=== PATIENT | female | born 1970 | race Caucasian/White ===

== ENCOUNTER 2025-06-29 08:03 | Emergency (ER) | payer MEDICAID, SELFPAY ==
[2025-06-29 08:14] VITALS: BP 100/70; PULSE 72; RESP 20; TEMP 36.6; O2SAT 97
--- OUTSIDE RECORDS SUMMARY | 2025-06-29 08:15 | XMS_ITS | Encounter Summary ---
Author Organization [facility] Health Address [address] [place] [address] Care Team Providers Care Bed Operator Name Role Phone Jennie Ramos MD Primary Care Provider Shant Costa MD Unavailable None, Physician Primary Care Provider Unavailabl e Encounter Details Date Type Department Care Team (Late st Contact Info) Description 06/12/2021 [facility] Outpatient Visit [facility] [address] [place] [address] Sam Everett MD [address] [place] [address] Social History Tobacco Use Types Packs/Day Years Used Date Smoking Tobacco: Every Day Cigarettes 2 41.4 Started: 02/07/1984 Smokeless Tobacco: Never Alcohol Use Standard Drinks/Week Comments No 0 (1 standard drink = 0.6 oz pur e alcohol) Comments No Sex and Gender Information Value Date Recorded Sex Assigned at Not on file Legal Sex Female 4:22 AM [employer]PER[employer] Gender Identity Not on file Sexual Orientation Not on file documented as of this encounter Functional Status * Is person deaf or have serious hearing difficulty? Answer Date of Assessment Author No 02/15/2021 2:45 PM CDT Digna Sawyer RN * Is person blind or have serious difficulty seeing? Answer Date of Assessment Author No 02/15/2021 2:45 PM CDT Digna Sawyer RN * Does person have serious difficulty walking/climbing stairs? Answer Date of Assessment Author No 02/15/2021 2:45 PM CDT Digna Sawyer RN * Does person have difficulty dressing/bathing? Answer Date of Assessment Author No 02/15/2021 2:45 PM CDT Digna Sawyer RN * Does person have difficulty doing errands alone? Answer Date of Assessment Author No 02/15/2021 2:45 PM CDT Digna Sawyer RN documented as of this encounter Mental Status * Does person have difficulty concentrating/remembering/making decisions? Answer Entry Date Author No 02/15/2021 2:45 PM CDT Digna Sawyer RN documented in this encounter Plan of Treatment Upcoming Encounters Date Type Department Care Team (Late st Contact Info) Description 07/18/2025 11:00 AM CDT Appointment [facility] [address] [place] [id number] Serafin White MD [address] [id number] documented as of this encounter Visit Diagnoses Not on filedocumented in this encounter Care Teams Bed Operator Relationship Specialty Start Date End Date Jennie Ramos MD [address] [place] [address] PCP - General Family Medicine 01/28/21 04/14/25 None, Physician PCP - General 04/15/25 [place] [address] [facility] [address] [place] [address] Physical Medicine and Rehabilitation 06/27/23 documented as of this encounter
--- OUTSIDE RECORDS SUMMARY | 2025-06-29 08:16 | XMS_ITS | Continuity of Care Document ---
Author Organization [facility] Address [address] [place] [address] Phone Care Team Providers Care Feedmobile Driver Name Role Phone Christi Oliveira MD Unavailable Unavailable Allergies, Adverse Reactions, Alerts Substance Reaction Status Criticality No Known Allergies Active No Inform ation Medications Medication Instructions Dosage Effective Dates (start - stop) Status Comments Wellbutrin SR 150 mg tablet, 12 hr sustained-release take 1 tablet by oral route 2 times every day 150 MG - Active amlodipine 5 mg tablet take 1 tablet by oral route every day 5 MG - Active Vitamin D2 1,250 mcg (50,000 unit) capsule take 1 capsule by oral route every month [address] UNITS - Active hydrochlorothiazide 25 mg tablet take 1 tablet by oral route every day in the morning 25 MG - Active folic acid 1 mg tablet take 1 tablet by oral route every day 1 MG - Active atorvastatin 40 mg tablet take 1 tablet by oral route every day 40 MG - Active aspirin 81 mg tablet,delayed release take 1 tablet by oral route every day 81 MG - Active albuterol sulfate HFA 90 mcg/actuation aerosol inhaler inhale 2 puff by inhalation route 4 times every day as needed 180 MCG - Active Breztri Aerosphere 160 mcg-9mcg-4.8mcg/actuation HFA aerosol inhaler inhale 2 puff by inhalation route 2 times every day in the morning and evening 2.00 puff - Active Procedures Procedure Date OFFICE KYONS-ILY-APSPRZON OFFICE [id number] OFFICE [id number] Kept Appointment No Charge Encounter Dec ROUTINE VENIPUNCTURE OFFICE [id number] Brief Emotional/Behavioral A ssessment, With Scoring/Doct, Per Stndrd Instrument EKG (ELECTROCARDIOGRAM) OFFICE NMDMD-IHO-NEWY-MED Advance Directives Directive Yes / No Effective Date File Name No Information Encounters Encounter Description Practice Location Reason(s) For Visit Diagnoses Date Provider Providers Copied on Encounter [facility], [address], [place], [place], [id number] , tel: [phone] [facility] No Information 4 Tee Barraza. [address], [place], [id number] , . tel: [phone] [facility], [address], [place], [place], [address] , tel: [phone] [facility] [employer] [facility] [place] [facility] No Information 2 Tee Barraza. [address], [place], [id number] , . tel: [phone] OFFICE RHJUS-KZT-AB TAILED [facility], [address], [place], [place], [id number] , tel: [phone] [facility] [employer] [place] [facility] acute problem (chief complaint) Other emphysemaTobacco useCough 2 Hudson Wei . [address], [place], [id number] , . tel: [phone] Referring Provider: Ike Terry, [address] [place], [address] . tel:[phone] OFFICE LJHBJ-KFC-YC TAILED [facility], [address], [place], [place], [id number] , tel: [phone] [facility] wants to quit smoking and has cough (chief complaint) Other emphysemaPulmonary nodulesCigarette nicotine dependence without complication 2 Patnana Christi. [address] [place] [address], [id number] , . tel: [phone] Referring Provider: Christi Oliveira, [address] [place] [address], [address] . tel:[phone] OFFICE YUXJM-FZW-RU PANDED [facility], [address] [facility], [place], [place], [address] , tel: [phone] [facility] acute problem (chief complaint) Other emphysemaPulmonary nodulesBody mass index [BMI] 35.0-35.9, adult 2 Hudson Wei . [address] [place] [address], [id number] , . tel: [phone] Referring Provider: Christi Oliveira, [address] [place] [address], [address] . tel:[phone] [facility], [address] [facility], [place], [place], [id number] , tel: [phone] [facility] No Information 2 Tee Barraza. [address] [place] [address], [id number] , . tel: [phone] Referring Provider: Christi Oliveira, [address] [place] [address], [address] . tel:[phone] [facility], [address] [facility], [place], [place], [address] , tel: [phone] [facility] Hematuria, unspecified type 2 Tee Barraza. [address] [place] [address], [id number] , . tel: [phone] OFFICE [id number]-PKV-ZF MP [facility], [address] [facility], [place], [place], [id number] , tel: [phone] [facility] follow up (chief complaint) Morbid obesityBenign essential hypertensionPulmonary emphysema, unspecified emphysema typePAD (peripheral artery disease)Mixed hyperlipidemiaSinus pressurePulmonary nodulesCigarette nicotine dependence without complication 2 Tee Barraza. [address] [place] [address], [id number] , . [phone] Referring Provider: Christi Oliveira, [address] [place] [address], [id number] . tel:[phone] OFFICE DBPES-NAV-AB -MED [facility], [address], [place], [place], [id number] , [place] tel:[phone] [facility] Here to establish (chief complaint) Body mass index [BMI] 36.0-36.9, adultMixed hyperlipidemiaPAD (peripheral artery disease)Pulmonary emphysema, unspecified emphysema typeEncounter for screening mammogram for malignant neoplasm of breastShortness of breathBenign essential hypertensionMorbid obesity Tee Barraza. [address] [place] [address], [id number] , . tel:[phone] Referring Provider: Christi Oliveira, [address] [place] [address], [address] . tel:[phone] Family History Family Member Type Diagnosis Age At Onset No Information Immunizations Vaccine Date Status Comments Fluzone Quad, preservative f ree, split virus, 0.5mL dosage administered Source: Other Provider Payers Payer name Insurance type Covered constitution party ID Authoriza guilherme(s) TARSHA [id number] Social History Type Description Quantity Date Captured Comments Alcohol Use Details Unknown Caffeine Use Details Unknown Tobacco Use Status Smoking Status No Information Sex Female Sexual Orientation Straight or heterosexual Gender Identity Female Chief Complaint And Reason For Visit No Information Reason For Referral Reason For Referral No Information Plan Of Treatment Date Type Action Status Goal Tobacco cessation counseling completed Goal Dietary management education , guidance, and counseling completed Goal Tobacco cessation counseling completed Goal Dietary management education , guidance, and counseling completed Goal Dietary management education , guidance, and counseling completed Referral Referred To: [address] [place], [place], [id number] Ordered: CT of chest without contrast ordered Referral Referred To: [address] [place] [address], [phone] Ordered: CT chest w/ and w/o contrast ordered Referral Referred To: [address] [place] [address], [id number] [phone] Ordered: EKG (ELECTROCARDIOGRAM) ordered Referral Referred To: [address] [place] [address], [id number] [phone] Ordered: SCREENING MAMMOGRAM (CAD) Bilateral breast ordered History Of Present Illness Encounter Date Complaint History Of Prese nt Illness acute problem Chief complaint: cough. [facility]-19 outbreak.Cough. Started 2 weeks ago. Denies any fever or chills. no body aches or fatigue. no headache or dizziness. Denies any facial pain or sinus pressure. no runny nose or nasal congestion. no sore throat. no post nasal drip. Productive cough. Productive cough with yellow mucus. Wheezing at night. Denies any chest pain, SOB. no nausea, vomiting, or diarrhea. no abdominal pain. no rashes. Has not tried anything for symptoms. Symptoms improved then worsened. no sick contacts. no COVID vaccines. wants to quit smokin g and has cough she has been smoking for 20 years. she smokes about 3 packs a day. she wants to quit because she has cough all the time and cannot breathe well. she has tried patches and did not work. Craving are bad. she would like to lose weight . she cannot exercise due to her breathing. she has been trying to lose weight . she does not or decrease breads and sugars. she has been decreasing soda intake although she says she had 32 oz of soda.Emphysema: uses Breztri. she continues to have cough at night and wheezing . NO recent exacerbation. no recent ER visits. recent CT chest showed no change from the previous one. acute problem Chief complaint: cough with phlegm. Here today with complaints of cough with phlegm. Started about 1 month ago. Denies any fever or chills. no headache or dizziness. Denies any runny nose, sore throat, cough. no body aches or fatigue. no facial pain or sinus pressure. no ear pain. Denies any loss of taste or smell. Denies any post nasal drip. Productive cough with thick yellow mucus. Denies any chest pain. SOB that has not changed or worsened. Improves with inhaler. Notices some wheezing at night. Denies any nausea, vomiting, or diarrhea. no abdominal pain. no change in appetite. Has not tried anything for symptoms. no sick contacts. No COVID vaccines. follow up PAD/HTN/HLD: She saw cardiology in October, who recommended treatment for hypertension and ordered an echo. Echo showed EF of 70%, normal systolic and diastolic function with mild mitral regurgitation. Started on amlodipine, ASA. Continued on HCTZ and atorvastatin. No claudication, CP. Has stress test planned on 12/29. Emphysema: On twice daily inhaler (Breztri), doing well. Does not have albuterol. Continues to have frequent productive cough, though feels it has slightly improved. SOB limits activity. Lots of wheezing, occurs daily. Worst when she lays down at night, coughing helps. Smoking about 1.5 packs daily. Smokes mostly when bored. Tried patches and other OTC treatments, nothing worked so far. Not sure what to do. Has smoked for over 30 years, struggling to break the habit. Hypothyroid: Stopped levothyroxine (old PCP started for weight loss, not hypothyroid). No neck pain/tenderness, excessive fatigue, skin changes, headaches. Pain: Reports frequent pain in bilateral wrists and shoulders. 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 Takes Tylenol for severe pain, doesn't help much. No longer taking bupropion or muscle relaxant (methocarbamol). Not sure if put on Wellbutrin for smoking cessation or not. It did not help reduce cravings. Diet: Doesn't eat much, typically has small portions. Trying to lose weightExercise: Unable to exercise due to SOB.Sleep: Sleep typically broken frequently during the night. Usually gets about 6 hours of sleep, does not nap. Goes to bed 9:30-10, wakes up at 1-2 AM, then goes back to sleep for a few hours. Takes about 30 minutes to go back to sleep. Wakes up 6:30.Complains of sinus issues. Frequent headaches and pressure in her forehead. Not vaccinated against Covid Here to establish she is here to establish care . she has been on steroids for spots on her lungs. she has been on it for 2 weeks. she is not vaccinated. she had PFT. she is taking thyroid medication to lose weight.she has been taking methocarbamol for neck and shoulder pain . she says she was diagnosed with RA. 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 UTD Influenza vaccine.She had PFt which showed severely decreased DLCO. she is on Breztri inhaler. she gets out of breath when she walks. she has cough and bringing up phlegm. she was treated with steroids and antibiotics which helped. she says she is coughing but not as bad. she has been on inhaler for a month and she says she has not noticed any change in her breathing . she gets out of breath with exertion for last 2 months. she cannot walk uphill . Gets easily out of breath . no h/o CAD . she has h/o PAD. Functional Status Date Functional Assessmen t No Information Instructions Date Instruction Additional Infor walker Come in today at 2:3 0 for COVID testStart Doxycycline 1 tablet twice a day x 7 days. Take with food and big glass of water. Wear sunscreen and hat outside, stay in shadeGood handwashing Tylenol 1 gram three times a day as needed for pain or fever. Do not exceed more than 4 grams of Tylenol or acetaminophen in 1 dayMucinex over the counter as neededWarm salt water garglesWarm liquids foodsIncrease rest, fluidsHumidifier at bedtimeNasal saline rinse as neededcall office or go to ER for any worsening symptoms, chest pain, shortness of breath, fever please maintain social distancing and good handwashing. Wear a mask when in public places Related to Cough Come in today at 2:3 0 for COVID testStart Doxycycline 1 tablet twice a day x 7 days. Take with food and big glass of water. Wear sunscreen and hat outside, stay in shadeGood handwashing Tylenol 1 gram three times a day as needed for pain or fever. Do not exceed more than 4 grams of Tylenol or acetaminophen in 1 dayMucinex over the counter as neededWarm salt water garglesWarm liquids foodsIncrease rest, fluidsHumidifier at bedtimeNasal saline rinse as neededcall office or go to ER for any worsening symptoms, chest pain, shortness of breath, fever please maintain social distancing and good handwashing. Wear a mask when in public places Related to Other emphysema I recommend you stop smoking Rel ated to Tobacco use Repeat CT scan 04/04 showed no ch jairon Related to Pulmonary nodules continue to use Brez tri USe albuterol inhaler 2 puffs tid rec to stop smoking. Related to Other emphysema Discussed at length about different optionswill try wellbutrinslow wean which she can start once she has been on wellbutrin for 2 weekscall 1-800-QUIT NOW for additional help. Related to Cigarette nicotine dependence without complication healthy diet low in saturated fats and refined carbohydrates and daily exercise Related to Body mass index [BMI] 35.0-35.9, adult Get CT of chest with [facility]: Related to Pulmonary nodules Start Doxycycline 1 tablet twice a day x 7 days. Advised to take with food and big glass of waterStart Prednisone take 3 tablets daily x 2 days then 2 tablets daily x 4 days then 1 tablet daily x 4 days Tylenol 1 gram three times a day as needed for pain or fever. Do not exceed more than 4 grams of Tylenol or acetaminophen in 1 dayWarm salt water garglesWarm liquids foodsIncrease rest, fluidsHumidifier at bedtimeNasal saline rinse as neededMucinex every 12 hours as needed Continue inhalersCall office for any increase in shortness of breath, fatigue, feverEr for any chest pain, difficulty breathing, feeling faint, confusionGet CT [facility] Get a COVID vaccine as soon as possible. The Pfizer vaccine is fully approved by the FDA. Hundreds of millions of doses of COVID vaccines have been given with extremely rare side effects. Almost every patient who is hospitalized and/or dies of COVID is unvaccinated.I recommend you quit smoking Related to Other emphysema Dietary management e ducation, guidance, and counseling Related to Body mass index (BMI) 35.0-35.9, adult Disease process Recommended healthy habits including balanced diet and frequent exercise to encourage weight loss check A1c and TSHspend over 50 min with pt Related to Morbid obesity continue with medica tionslow salt dietencouraged exerciseObtain monitoring labs today Related to Benign essential hypertension continue with mediat ions Encouraged healthy balanced diet, exercise to promote weight loss follow through with stress test Related to PAD (peripheral artery disease) continue with statin low fat diet exercise as toleratedObtain monitoring labs today Related to Mixed hyperlipidemia Discussed at length about ways she can wean off cigWellbutrin did not help.she can try nicotrol inhalers .BUy one pack instead of two. Related to Cigarette nicotine dependence without complication NOted on CT scan of chest .rec a repeat in 6months which will be due in january. Related to Pulmonary nodules take over the counte r Claritin as needed Related to Sinus pressure Dietary management e ducation, guidance, and counseling Related to Body mass index (BMI) 34.0-34.9, adult BMI above 35. she castillo s HTN/HLD and Emphysemarec A1c and TSHAS per pt she had labs done a month agowill get records from previous PCPlow fat and car b dietrefrain from processed foodsAS per pt previous PCP was giving Levothyroxine for her to lose weightPt aware , we do not recommend that. Related to Morbid obesity Low salt diet. Maint ain ideal weight. Continue the same medications. Related to Benign essential hypertension continue Breztristop smoking. Re lated to Pulmonary emphysema, unspecified emphysema type Aggressive sec preve ntioncontinue statinsstop smokingASA a day Related to PAD (peripheral artery disease) low fat diet , stay active .continue statins Related to Mixed hyperlipidemia PFT showed low DLCOm ost likley due to emphysemashe is a heavy smokerrec CT chest nuclear stress. Related to Shortness of breath Dietary management e ducation, guidance, and counseling Related to Body mass index (BMI) 36.0-36.9, adult Giving encouragement to exercise Related to Body mass index (BMI) 36.0-36.9, adult Assessments Type Assessment Date No Information Patient Care Teams Name Effective Dates (start - stop) Status Members No Information
--- OUTSIDE RECORDS SUMMARY | 2025-06-29 08:16 | XMS_ITS | Clinical Summary ---
Author Organization [facility] Address [address] [place] [address] Care Team Providers Care Application Chemist Name Role Phone Shant Costa MD Unavailable [phone] None, Physician Primary Care Provider Unavailabl e Source Comments [facility],non-owned Affiliates and Associated Physician Practices is amultiple site organization consisting of ambulatory clinics and hospital sitesin [place], [place], [place] and [place]. This disclosure is being madepursuant to the Care Everywhere program and may not contain all information available regarding this patient. Last updated 18.[facility] Allergies No known active allergies Medications * Be aware that medications may not be up to date on this document. Alwaysverify current medications with the patient. aspirin (Aspirin) 81 MG chew tablet Take 1 (one) tablet by mouth once daily (chew and swallow) 90 tablet 3 04/14/2025 Active oxyCODONE, immediate release, (Roxicodone) 5 MG tabletIndication s:Aortic occlusion Take 1 (one) tablet by mouth every 4 hours as needed 4 tablet 04/14/2025 Active clopidogrel (plaVIX) 75 MG tablet Take 1 (one) tablet by mouth once daily 90 tablet 04/14/2025 Active Active Problems Problem Noted Date Diagnosed Date Abdominal pain, LUQ (left upper quadrant) 2020 Incisional hernia, without obstruction or gangre ne 02/13/2021 Chronic pain 08/22/2020 Overview (06/12/2021): Last Assessment & Plan: - May need pain management consultation - Home usage of narcotics and baclofen -[employer]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 SEE post op pain 08/26: Now off lidocaine drip, continue [employer] TECHNICIAN, transition to p.o. pain medication as able 08/27: Transitioned to PO pain medication. Complains mostly of chronic right knee pain secondary to uncontrolled RA per patient. Will refer her to a PCP for RA evaluation/management. Cigarette nicotine dependence without complicati on 05/10/2019 Pain in both lower extremities 02/06/2019 Aortic occlusion 02/06/2019 Encounters Date Type Department Care Team Description 05/23/2025 11:45 AM CDT Office Visit [facility] - Vascular Surgery [address], [place] [address] Serafin White MD Aortic occlusion (Primary Dx); Claudication; Encounter to establish care with new doctor 05/23/2025 10:35 AM CDT - 05/23/2025 11:59 PM T Hospital Encounter [facility] CAT SCAN [address] [place] [address] Serafin White MD Discharge Disposition: Home or Self Care 05/23/2025 Travel 04/22/2025 Telephone [facility] - Vascular Surgery [address] [place] [address] Serafin White MD Return To Work 04/15/2025 Travel 04/14/2025 Orders Only [facility] PHYS SURGERY [address] [place] [address] Tessa Huang MD Chronic distal aortic occlusion (HCC) 04/12/2025 9:15 AM CDT Anesthesia Event [facility] ANGELA OP [address] [place] [address] Rupesh Loja MD 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, 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, 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 04/12/2025 9:00 AM CDT - 04/12/2025 11:58 AM CDT Surgery [facility] AN[facility]ELA OP [address] [place] [address] Serafin White MD AORTIC STENT PLACEMENT, AORTOGRAM, IVUS 04/12/2025 7:36 AM CDT - 04/14/2025 12:16 PM CDT Hospital Encounter [facility] 4S ICU [address] [place] [address] Serafin White MD Surgery General Discharge Disposition: Home or Self Care 04/12/2025 Travel 04/03/2025 1:47 PM CDT - 04/03/2025 11:59 PM CDT Hospital Encounter [facility] LAB OP DRAW STATION [address] [place] [address] Serafin White MD Discharge Disposition: Home or Self Care 04/03/2025 1:45 PM CDT - 04/03/2025 1:46 PM CDT Hospital Encounter [facility] EKG/HOLTER [address] [place] [address] Serafin White MD Discharge Disposition: Home or Self Care 04/03/2025 1:22 PM CDT - 04/03/2025 1:44 PM CDT Hospital Encounter [facility] PAT [address] [place] [address] Serafin White MD Discharge Disposition: Home or Self Care 04/03/2025 Travel from Last 3 Months Immunizations Immunization Administration Dates Next Due INFLUENZA VACCINE, QUADR. (F LUZONE; FLULAVAL; FLUARIX; AFLURIA QUADRIVALENT; 6MO+), 0.5 ML (IIV4) 08/26/2021 Family History Medical History Relation Name Comments CVA Father Hypertension Father Arthritis - Rheumatoid Mother Cancer Paternal Grandfather Relation Name Status Comments Father Mother Paternal Grandfather Social History Tobacco Use Types Packs/Day Years Used Date Smoking Tobacco: Every Day Cigarettes 2 41.4 Started: 02/07/1984 Smokeless Tobacco: Never Tobacco Cessation:Ready to Q uit: No; Counseling Given: Yes Alcohol Use Standard Drinks/Week Comments No 0 (1 standard drink = 0.6 oz pur e alcohol) AUDIT-C Answer Date Recorded Q1: How often do you have a drink containing alcohol? Never 04/12/2025 Q2: How many drinks containi ng alcohol do you have on a typical day when you are drinking? Patient does not drink Q3: How often do you have si x or more drinks on one occasion? Never 04/12/2025 Overall Financial Resource Strain (CARDIA) Answe r Date Recorded How hard is it for you to pa y for the very basics like food, housing, medical care, and heating? Not hard at all 04/12/2025 PHQ-2 Answer Date Recorded Patient Health Questionnaire-2 Score 0 06/26/2025 [facility] - Occupational Stress Questionnaire Answer Date Recorded Do you feel stress - tense, restless, nervous, or anxious, or unable to sleep at night because your mind is troubled all the time - these days? Not at all 04/12/2025 Hunger Vital Sign Answer Date Recorded Within the past 12 months, y ou worried that your food would run out before you got the money to buy more. Never true 04/12/20 25 Within the past 12 months, t he food you bought just didn't last and you didn't have money to get more. Never true 04/12/2025 PRAPARE - Transportation Answer Date Re corded In the past 12 months, has l ack of transportation kept you from medical appointments or from getting medications? No 03/16 In the past 12 months, has l ack of transportation kept you from meetings, work, or from getting things needed for daily living? No 04/12/2025 Housing Stability Vital Sign Answer Danie e Recorded In the last 12 months, was t here a time when you were not able to pay the mortgage or rent on time? No 04/12/2025 In the past 12 months, how m any times have you moved where you were living? 0 04/12/2025 At any time in the past 12 m [facility], were you homeless or living in a halfway (including now)? 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 Gender Identity Not on file Sexual Orientation Not on file Last Filed Vital Signs Vital Sign Reading Time Taken Comments Blood Pressure 109/72 05/23/2025 12:11 PM CDT Pulse 65 05/23/2025 12:11 PM CDT Temperature 36.3 C (97.3 F) 05/23/2025 12:11 PM CDT Respiratory Rate 21 04/14/2025 8:00 AM CDT Oxygen Saturation 97% 05/23/2025 12:11 PM CDT Inhaled Oxygen Concentration 40% 02/12/2019 4 :27 PM CDT Weight 83.5 kg (184 lb) 05/23/2025 12:11 PM CDT Height 162.6 cm (5' 4) 05/23/2025 12:11 PM CDT Body Mass Index 31.58 05/23/2025 12:11 PM CDT Plan of Treatment Upcoming Encounters Date Type Department Care Team (Late st Contact Info) Description 07/18/2025 11:00 AM CDT Appointment [facility] VASCULAR [address] [place] [address] Serafin White MD [address] [address] Health Maintenance Due Date Last Done Comments COLOGUARD (AGES 45-75) - COLON CA SCREENING 1969 COLON MONITORING 1969 COLONOSCOPY - COLON CA SCREENING 1969 CT COLONOGRAPHY - COLON CA SCREENING 1969 Colorectal Cancer Screening 1969 FIT - COLON CA SCREENING 1969 FLEX SIG - COLON CA SCREENING 1969 LIPID TESTING 1969 HIV SCREENING 1984 HEPATITIS C SCREENING 11/23/1987 DTAP/TDAP/TD VACCINES (1 - Tdap) 1988 HEPATITIS B VACCINE (1 of 3 - 19+ 3-dose series) 1988 PNEUMOCOCCAL VACCINE 50+ (1 of 2 - PCV) 1988 PAP SMEAR 1990 MAMMOGRAM 08/01/2015 08/01/2013, 08/01/2013 LUNG CANCER SCREENING 2019 ZOSTER VACCINE (1 of 2) 2019 COVID-19 VACCINE ( season) 2024 DEPRESSION SCREENING 11/14/2024 INFLUENZA VACCINE (#1) 2025 08/26/2021 SCREENING FOR DIABETES 04/14/2028 , 04/12/2025, 04/03/2025, Additional history exists HIB VACCINE Aged Out No longer eligi ble based on patient's age to complete this topic HPV VACCINE Aged Out No longer eligi ble based on patient's age to complete this topic MENINGOCOCCAL (Group B) VACCINE SHARED DECISION-MAKING Aged Out No longer eligible based on patient's age to complete this topic MENINGOCOCCAL GROUPS A/C/Y/W VACCINE Aged Out No longer eligible based on patient's age to complete this topic Medical Devices Implanted Type Area Transfer Table Operator Device Identifier Shelf Expiration Date Model / Serial / Lot Graft Cv 6mm 30cm [facility] Polystr 2 r - [id number] Implanted:Qty: 1 on 02/12/2019 by Serafin White MD at [facility] N/A: Aorta [employer]quet 12/14/2022 [id number] / [id number] / [id number] [address] Sepra 10x6in Ovl Implanted:Qty: 1 on 02/13/2021 by Josey Schwartz MD at [facility] N/A: Abdomen [employer] [id number] 10/11/2021 [id number] / / [id number] Stent Eprsth 59mm 11mm 16sq Mm 8fr [place] - [id number] Implanted:Qty: 1 on 04/12/2025 by Serafin White MD at [facility] N/A: Aorta [employer] 12/25/2026 [id number] / [id number] / . Procedures Procedure Name Priority Date/Time Associated Diagnosis Comments CT ANGIO ABDOMEN PELVIS Routine 05/23/2025 10:54 AM CDT Chronic distal aortic occlusion (HCC) PHOSPHORUS BLOOD Routine 04/14/2025 3:47 AM CDT MAGNESIUM BLOOD Routine 04/14/2025 3:47 AM CDT CBC W/O DIFFERENTIAL Routine 04/14/2025 3:47 AM CDT BASIC METABOLIC PANEL (CALCIUM TOTAL) Routine 04/14/2025 3:47 AM CDT URINALYSIS REFLEX TO MICROSCOPIC NO CULTURE Routine 04/13/2025 9:51 AM CDT XR CHEST 1VW PORTABLE STAT 04/13/2025 9:47 AM CDT Aortic occlusion PHOSPHORUS BLOOD Routine 04/12/2025 11:5 3 PM CDT MAGNESIUM BLOOD Routine 04/12/2025 11:53 PM CDT CBC W/O DIFFERENTIAL Routine 04/12/2025 11:53 PM CDT BASIC METABOLIC PANEL (CALCIUM TOTAL) Routine 04/12/2025 11:53 PM CDT BLOOD GASES ART + COOX PANEL Routine 04/12/2025 2:55 PM CDT BLOOD GASES ART + COOX PANEL Routine 04/12/2025 1:08 PM CDT CBC W AUTO DIFFERENTIAL STAT 04/12/2025 1:08 PM CDT FL ANITRA W ANGIO TEAM Routine 04/12/2025 11:02 AM CDT Aortic occlusion PERIPHERAL IV NOTE Routine 04/12/2025 10 :14 AM CDT ENDOTRACHEAL TUBE NOTE Routine 04/12/2025 10:13 AM CDT ARTERIAL LINE NOTE Routine 04/12/2025 10 :12 AM CDT BLOOD GAS ART+LYTES+METAB+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 HE IS NOTIFYING THE REP HIMSELFC-ARM WITH ANGIO ORDERED, NEEDS IVUS PREPARE RBC LEUKOREDUCED UNIT Routine 04/12/2025 8:10 AM CDT TYPE + SCREEN PANEL STAT 04/12/2025 8 :10 AM CDT Pre-op exam TYPE + SCREEN PANEL Routine 04/03/2025 2 :23 PM CDT Pre-op testing CBC W/O DIFFERENTIAL Routine 04/03/2025 2:23 PM CDT Pre-op testing BASIC METABOLIC PANEL (CALCIUM TOTAL) Routine 04/03/2025 2:23 PM CDT Pre-op testing EKG 12-LEAD Routine 04/03/2025 1:06 PM CDT Pre-op testing from Last 3 Months Results * CT Angio Abdomen Pelvis (05/23/2025 10:54 AM CDT) Anatomical Region Laterality Modality Abdomen, Pelvis Computed Tomogra phy 05/23/2025 7:35 PM CDT Impressions 05/23/2025 7:42 PM CDT IMPRESSION: 1. Interval stenting of the infrarenal abdominal aorta, now widely patent. > Interpreting Provider: Ben Stafford MD on 05/23/2025 7:42 PM Narrative 05/23/2025 7:42 PM CDT PROCEDURE: CT ANGIO ABDOMEN PELVIS DATE/TIME OF EXAM: 05/23/2025 10:55 AM CLINICAL INFORMATION: None relevant/not provided if blank. Indication: I74.09: Chronic distal aortic occlusion (HCC) Additional History: COMPARISON: 03/25/2025, CT ANGIO ABDOMEN AORTA W RUNOFF TECHNIQUE: CT angiography of the abdomen and pelvis was performed without IV contrast followed by IV contrast. including 3D post processing CTA image reconstruction. CT dose reduction technique was used, including Automated Exposure Control. CONTRAST: IOPAMIDOL 76 % IV SOLN:100 mL FINDINGS: Vascular findings: There is no stenting of the infrarenal abdominal aorta which is now widely patent. The celiac artery is patent. The superior mesenteric artery is patent. The renal arteries are patent. Iliac arteries are patent with scattered calcifications. Nonvascular findings: There is atelectasis in the lung bases. There is no pleural effusion. The heart is normal in size. No pericardial effusion. The liver is normal. The gallbladder is normal. The spleen is normal. The pancreas is normal. The adrenal glands are normal. The kidneys enhance symmetrically with no hydronephrosis. The urinary bladder is normal. The uterus is normal. The small and large bowel are normal in caliber without bowel obstruction. There is no free intraperitoneal gas or free fluid in the pelvis. No abdominal lymphadenopathy. No suspicious osseous lytic or blastic lesion on bone windows. Procedure Note Ben Stafford MD - 05/23/2025 PROCEDURE: CT ANGIO ABDOMEN PELVIS DATE/TIME OF EXAM: 05/23/2025 10:55 AM CLINICAL INFORMATION: None relevant/not provided if blank. Indication: I74.09: Chronic distal aortic occlusion (HCC) Additional History: COMPARISON: 03/25/2025, CT ANGIO ABDOMEN AORTA W RUNOFF TECHNIQUE: CT angiography of the abdomen and pelvis was performed without IVcontrast followed by IV contrast. including 3D post processing CTA image reconstruction. CT dose reduction technique was used, including Automated ExposureControl. CONTRAST: IOPAMIDOL 76 % IV SOLN:100 mL FINDINGS: Vascular findings: There is no stenting of the infrarenal abdominal aorta which is nowwidely patent. The celiac artery is patent. The superior mesenteric artery is patent.The renal arteries are patent. Iliac arteries are patent with scattered calcifications. Nonvascular findings: There is atelectasis in the lung bases. There is no pleural effusion.The heart is normal in size. No pericardial effusion. The liver is normal. The gallbladder is normal. The spleen is normal.The pancreas is normal. The adrenal glands are normal. The kidneys enhance symmetrically with no hydronephrosis. The urinary bladder is normal. The uterus is normal. The small and large bowel are normal in caliber without bowelobstruction. There is no free intraperitoneal gas or free fluid in the pelvis. No abdominal lymphadenopathy. No suspicious osseous lytic or blastic lesion on bone windows. IMPRESSION: 1. Interval stenting of the infrarenal abdominal aorta, now widelypatent. > Interpreting Provider: Ben Stafford MD on 05/23/2025 7:42 PM us Serafin White MD CT ORDERABLES Final Result * (ABNORMAL) CBC W/O DIFFERENTIAL (04/14/2025 3:47 AM CDT) Only the most recent of3 resultswithin the time period is included. WBC 11.5(H) 4.0 - 10.7 x10E9/L 04/14/2025 3:57 AM [facility] RBC Count 3.86(L) 3.90 - 5.20 x10E12/L 04/14/2025 3:57 AM [facility] Hemoglobin 11.8(L) 11.9 - 15.8 g/dL 04/14/2025 3:57 AM [facility] Hematocrit 33.3(L) 34.8 - 46.1 % 04/14/2025 3:57 AM [facility] MCV 86.3 80.0 - 98.0 fL 04/14/2025 3:57 AM [facility] MCH 30.6 26.7 - 33.6 pg 04/14/2025 3:57 AM [facility] MCHC 35.4 31.7 - 36.3 g/dL 04/14/2025 3:57 AM [facility] RDW-CV 14.9(H) 11.3 - 14.8 % 04/14/2025 3:57 AM [facility] Platelet Count 192 150 - 420 x10E9/L 04/14/2025 3:57 AM [facility] MPV 9.5 7.8 - 11.4 fL 04/14/2025 3:57 AM [facility] Blood BLOOD SPECIMEN / Unknown Venipuncture / Unknown 04/14/2025 3:47 AM CDT 04/14/2025 3:53 AM CDT us Serafin White MD LAB - HEMATOLOGY ORDERABLES F inal Result [address] [address], [facility] [phone] * (ABNORMAL) BASIC METABOLIC PANEL (CALCIUM TOTAL) (04/14/2025 3:47 AM CDT) Only the most recent of3 resultswithin the time period is included. BUN 14 7 - 26 mg/dL 04/14/2025 4:19 AM [facility] Creatinine 0.87 0.56 - 0.96 mg/dL 04/14/2025 4:19 AM [facility] Sodium 138 136 - 145 mmol/L 04/14/2025 4:19 AM [facility] Potassium 4.1 3.5 - 4.5 mmol/L 04/14/2025 4:19 AM [facility] Chloride 106 98 - 107 mmol/L 04/14/2025 4:19 AM [facility] CO2 25 22 - 29 mmol/L 04/14/2025 4:19 AM [facility] Glucose 98 70 - 99 mg/dL 04/14/2025 4:19 AM [facility] Calcium 8.4 8.4 - 10.2 mg/dL 04/14/2025 4:19 AM [facility] Anion Gap 7 6 - 16 04/14/2025 4:19 AM [facility] BUN/Creatinine Ratio 16 7 - 23 04/14/2025 4:19 AM [facility] Osmolality Calculated 286 275 - 295 mOsm/kg 04/14/2025 4:19 AM CDT [facility] eGFR by CKD-EPI 79(L) >=90 mL/min/1.7 3 m2 04/14/2025 4:19 AM CDT [facility] Blood BLOOD SPECIMEN / Unknown Venipuncture / Unknown 04/14/2025 3:47 AM CDT 04/14/2025 3:53 AM CDT Serafin White MD LAB - CHEMISTRY ORDERABLES Fi nal Result [facility] [address] [place] [address], [place] [phone] * PHOSPHORUS BLOOD (04/14/2025 3:47 AM CDT) Only the most recent of2 resultswithin the time period is included. Phosphorus 3.8 2.9 - 5.1 mg/dL 04/14/2025 4:19 AM CDT [facility] Blood BLOOD SPECIMEN / Unknown Venipuncture / Unknown 04/14/2025 3:47 AM CDT 04/14/2025 3:53 AM CDT Serafin White MD LAB - CHEMISTRY ORDERABLES Fi nal Result Performing Organization Address City/[facility]/ZIP Co de Phone Number [facility] [address] [place] [address], [place] [phone] * MAGNESIUM BLOOD (04/14/2025 3:47 AM CDT) Only the most recent of2 resultswithin the time period is included. Magnesium 1.7 1.6 - 2.6 mg/dL 04/14/2025 4:19 AM CDT [facility] Blood BLOOD SPECIMEN / Unknown Venipuncture / Unknown 04/14/2025 3:47 AM CDT 04/14/2025 3:53 AM CDT Serafin White MD LAB - CHEMISTRY ORDERABLES Fi nal Result [facility] [address] [place] [address], [facility] [phone] * (ABNORMAL) URINALYSIS REFLEX TO MICROSCOPIC NO CULTURE (04/13/2025 9:51 AM CDT) Color UA Colorless(A ) Yellow, Straw 04/13/2025 10:03 AM [facility] Clarity UA Clear Clear 04/13/2025 10:03 AM [facility] Glucose UA Normal Normal 04/13/2025 10:03 AM T [facility] Bilirubin UA Negative Negative 04/13/2025 10:03 AM T [facility] Ketone UA Negative Negative 04/13/2025 10:03 AM [facility] Specific [place] UA 1.008 1.005 - 1.030 04/13/2025 10:03 AM [facility] Blood UA Negative Negative 04/13/2025 10:03 AM [facility] pH UA 6.5 5.0 - 8.0 pH 04/13/2025 10:03 AM [facility] Protein UA Negative Negative 04/13/2025 10:03 AM [facility] Urobilinogen UA Normal Normal mg/dL 04/13/2025 10:03 AM [facility] Nitrite UA Negative Negative 04/13/2025 10:03 AM [facility] Leukocyte Esterase UA Negative Negative 04/13/2025 10:03 AM [facility] Urine URINE SPECIMEN OBTAINED BY CLEAN CATCH PROCEDURE / Unknown Collection / Unknown 04/13/2025 9:51 AM CDT 04/13/2025 9:54 AM [facility] Narrative [facility] - 04/13/2025 10:03 AM CDT us Serafin White MD LAB - URINALYSIS ORDERABLES F inal Result [facility] [address] [place] [address], [facility] [phone] * XR Chest 1Vw Portable (04/13/2025 9:47 AM CDT) Anatomical Region Laterality Modality Chest Digital Radiogra phy 04/13/2025 11:0 3 AM CDT Narrative 04/13/2025 11:23 PM CDT PROCEDURE: XR CHEST 1VW PORTABLE, DATE/TIME OF EXAM: 04/13/2025 9:47 AM, LOCATION [facility] INDICATION: I70.0: Aortic occlusion ADDITIONAL CLINICAL INFORMATION: Ordering Provider Reason For Exam: Technologist Note: Additional: COMPARISON: None. TECHNIQUE: Frontal radiograph of the chest. FINDINGS/IMPRESSION: Cardiomediastinal silhouette appears normal. No pleural effusion or pneumothorax. Questionable mild vascular congestion. No acute osseous abnormality. Report dictated by Edinson Vera MD, (Sound Editor). Mina Cullen have personally reviewed and interpreted this examination/study. > Interpreting Provider: Mina Mcdaniel on 04/13/2025 11:23 PM Procedure Note Mina Mcdaniel MD - 04/13/2025 PROCEDURE: XR CHEST 1VW PORTABLE, DATE/TIME OF EXAM: 04/13/2025 9:47AM, LOCATION [facility] INDICATION: I70.0: Aortic occlusion ADDITIONAL CLINICAL INFORMATION: Ordering Provider Reason For Exam: Technologist Note: Additional: COMPARISON: None. TECHNIQUE: Frontal radiograph of the chest. FINDINGS/IMPRESSION: Cardiomediastinal silhouette appears normal. No pleural effusion or pneumothorax. Questionable mild vascular congestion. No acute osseous abnormality. Report dictated by Edinson Vera MD, (Sound Editor). Mina Cullen have personally reviewed and interpreted this examination/study. > Interpreting Provider: Mina Mcdaniel on 04/13/2025 11:23 PM us Serafin White MD DIAGNOSTIC IMAGING ORDERABLES Final Result * (ABNORMAL) BLOOD GASES ART + COOX PANEL (04/12/2025 2:55 PM CDT) Only the most recent of2 resultswithin the time period is included. pH Arterial 7.33(L) 7.35 - 7.45 pH 04/12/2025 3:06 PM CDT [facility] pO2 Arterial 81 80 - 100 mmHg 04/12/2025 3:06 PM [facility] pCO2 Arterial 47(H) 35 - 45 mmHg 3:06 PM [facility] HCO3 Arterial 24.8 20.0 - 30.0 mmol/L 04/12/2025 3:06 PM [facility] BE Arterial -1.6 -2.0 - 2.0 mmol/L 04/12/2025 3:06 PM [facility] Oxyhemoglobin Arterial 91.0 % 04/12/2025 3:06 PM [facility] Dexoyhemoglobin (HHB) % 2.0 % 04/12/2025 3:06 PM [facility] Methemoglobin <0.8 0.0 - 2.0 % 04/12/2025 3:06 PM [facility] Carboxyhemoglobin 6.4(H) 0.0 - 2.0 % 2024 3:06 PM [facility] O2 Content Arterial 19.1 Interpret within clinical context ml/dL 04/12/2025 3:06 PM [facility] Hemoglobin by COOX 14.9 12.0 - 15.6 g/dL 04/12/2025 3:06 PM [facility] O2 Saturation Arterial 98 90 - 100 % 04/12/2025 3:06 PM [facility] FI O2 Arterial 28.0 % 04/12/2025 3:06 PM [facility] Comment:2 L NC Blood, arterial ARTERIAL BLOOD SPECIMEN / Unknown Arterial Puncture / Unknown 04/12/2025 2:55 PM T 04/12/2025 3:[address] [facility] - 04/12/2025 3:06 PM [facility] Carboxyhemoglobin Normal Concentration: Non-smokers: 0-2%; Smokers: 0-9%; Toxic: >20% us Rupesh Loja MD LAB - BLOOD GASES ORDERABLES F inal Result [facility] [address] [place] [address], [facility] [phone] * (ABNORMAL) CBC W AUTO DIFFERENTIAL (04/12/2025 1:08 PM [facility]) WBC 21.6(H) 4.0 - 10.7 x10E9/L 04/12/2025 1:22 PM [facility] RBC Count 4.73 3.90 - 5.20 x10E12/L 04/12/2025 1:22 PM [facility] Hemoglobin 14.4 11.9 - 15.8 g/dL 04/12/2025 1:22 PM [facility] Hematocrit 40.2 34.8 - 46.1 % 04/12/2025 1:22 PM [facility] MCV 85.0 80.0 - 98.0 fL 04/12/2025 1: PM [facility] MCH 30.4 26.7 - 33.6 pg 04/12/2025 1:22 PM [facility] MCHC 35.8 31.7 - 36.3 g/dL 04/12/2025 1:22 PM [facility] [facility] RDW-CV 15.3(H) 11.3 - 14.8 % 04/12/2025 1:22 PM [facility] Platelet Count 381 150 - 420 x10E9/L 04/12/2025 1:22 PM [facility] MPV 9.5 7.8 - 11.4 fL 04/12/2025 1:22 PM [facility] Neutrophil % 86.7(H) 41.0 - 74.0 % 04/12/2025 1:22 PM [facility] Lymphocyte % 9.1(L) 17.0 - 47.0 % 04/12/2025 1:22 PM [facility] Monocyte % 1.1(L) 3.0 - 11.0 % 04/12/2025 1:22 PM [facility] Eosinophil % 0.2 0.0 - 7.0 % 04/12/2025 1:22 PM [facility] Basophil % 0.7 0.0 - 1.6 % 04/12/2025 1:22 PM [facility] Immature Granulocytes % 2.2(H) 0.0 - 1.0 % 04/12/2025 1:22 PM CDT [facility] Neutrophil Absolute 18.77(H) 1.60 - 7.50 x10E9/L 04/12/2025 1:22 PM CDT [facility] Lymphocyte Absolute 1.97 1.00 - 4.40 x10E9/L 04/12/2025 1:22 PM CDT [facility] Monocyte Absolute 0.23 0.15 - 1.00 x10E9/L 04/12/2025 1:22 PM CDT [facility] Eosinophil Absolute 0.04 0.00 - 0.60 x10E9/L 04/12/2025 1:22 PM CDT [facility] Basophil Absolute 0.15(H) 0.00 - 0.13 x10E9/L 04/12/2025 1:22 PM CDT [facility] Blood BLOOD SPECIMEN / Unknown Line Draw / Unknown 04/12/2025 1:08 PM CDT 04/12/2025 1:14 PM CDT us Rupesh Loja MD LAB - HEMATOLOGY ORDERABLES Fi nal Result [facility] [address] [place] [address], [facility] [phone] * [place] Anitra Parker Angio Team (04/12/2025 11:02 AM CDT) Narrative [facility] RADIOLOGY - 04/12/2025 11:03 AM CDT Fluoroscopy was used for this exam in the OR. Please see the Operative report. us Serafin White MD FLUOROSCOPY ORDERABLES Final Result [facility] RADIOLOGY * IV PLACEMENT PERFORMABLE (04/12/2025 10:14 AM CDT) Narrative Vidal Duong DO - 04/12/2025 10:14 AM CDT Vidal Duong DO 04/12/2025 10:14 AM Peripheral IV Line Placement: Patient Location: OR Insertion Time: 04/12/2025 9:30 AM Procedure: IV start ([id number]) Procedure Section: Skin Prep: alcohol. Orientation: right Location: hand Local Anesthetic Used? No Catheter Gauge: 16 Number of Attempts: 1. Procedure Tolerance: performed while patient under general anesthesia. Staff Section Anesthesia Provider: Rupesh Loja MD, Performed the procedure Rupesh Loja MD GENERAL ANESTHESIA ORDERABLES Final Result * ETT LINE PERFORMABLE (04/12/2025 10:13 AM CDT) Narrative Vidal Duong DO - 04/12/2025 10:13 AM CDT Vidal Duong DO 04/12/2025 10:14 AM Endotracheal Tube Placement: Patient Location: OR. Intubation Event Date/Time: 04/12/2025 9:28 AM Procedure: intubation ([id number]) Procedure Section: Sedation: under general anesthesia. Indications for Airway Management: anesthesia Procedure pretreatments used? No Induction: standard IV Patient Position: sniffing Mask Ventilation: easy. Blade Type: Video Blade Size: 3 Laryngoscopy View: grade 1 (full cords) Intubation Adjuncts: stylet Tube: endotracheal tube Placement: oral Tube type: cuff - inflated Tube Size (MM): 7 Depth of Insertion (CM): 22 Measured From: gums Cuff Inflated With: air Number of Attempts: 1. Placement Verified By: direct visualization, bilateral breath sounds, chest auscultation and CO2 monitor Tube secured with: adhesive tape. Dentition unchanged? Yes Difficult Airway? No. Procedure Start Time: 04/12/2025 9:28 AM. Staff Section Anesthesia Provider: Vidal Duong DO, Performed the procedure Provider #1: Rupesh Loja MD. Result [facility] Rupesh Loja MD GENERAL ANESTHESIA ORDERABLES Final Result * ARTERIAL LINE PERFORMABLE (04/12/2025 10:12 AM CDT) Narrative Vidal Duong DO - 04/12/2025 10:12 AM CDT Vidal Duong DO 04/12/2025 10:13 AM Arterial Line Placement Procedure Note Patient Location: OR. Insertion Time: 04/12/2025 9:32 AM Procedure: Arterial Line ([id number]) Procedure Section Indications: continuous blood pressure monitoring. Consent: informed consent was obtained for the procedure. Alternatives Discussed: alternative treatment Skin Prep: Chloraprep. Orientation: Left. Site: radial. Site Identification: ultrasound guided with sterile sleeve and gel. Sterile Technique: cap and mask. Gauge: 22. Catheter Length: 1 and 3/4 inch. Catheter Type: Arrow. Seldinger Technique Used? Yes Number of Attempts: 1. Procedure Tolerance: performed while patient under general anesthesia. Events: none. Patient Sedated? Yes Local Anesthetic Used? No Sedation Types: general anesthesia Staff Section Anesthesia Provider: Vidal Duong DO, Performed the procedure Provider #1: Rupesh Loja MD. Rupesh Loja MD GENERAL ANESTHESIA ORDERABLES Final Result * BLOOD GAS ART+LYTES+METAB+COOX POC NOTIF (04/12/2025 9:55 AM CDT) Comment Notification Label Only - See Separate Report 04/13/2025 10:00 AM CDT [facility] Other MISCELLANEOUS SAMPLES / Unknown 04/12/2025 9:55 AM CDT 04/13/2025 8:44 AM CDT Rupesh Loja MD LAB - BLOOD GASES ORDERABLES F inal Result [address] [address], [facility] [phone] * (ABNORMAL) BLOOD GAS+COOX+LYTES+METAB ARTERIAL POCT (04/12/2025 9:53 AM CDT) Only the most recent of2 resultswithin the time period is included. pH Arterial 7.32(L) 7.35 - 7.45 pH 04/12/2025 9:53 AM CDT [facility] pO2 Arterial 225(H) 80 - 100 mmHg 04/12/2025 9:53 AM T [facility] pCO2 Arterial 45 35 - 45 mmHg 9:53 AM [facility] HCO3 Arterial 23.2 20.0 - 30.0 mmol/L 04/12/2025 9:53 AM [facility] BE Arterial -3.0(L) -2.0 - 2.0 mmol/L 04/12/2025 9:53 AM T [facility] Oxyhemoglobin Arterial 90.8 % 04/12/2025 9:53 AM [facility] Dexoyhemoglobin (HHB) % <1.0 % 04/12/2025 9:53 AM [facility] Methemoglobin <0.8 0.0 - 2.0 % 04/12/2025 9:53 AM [facility] Carboxyhemoglobin 7.9(H) 0.0 - 2.0 % 2024 9:53 AM [facility] Comment:Carboxyhemoglobin No rmal Concentration: Non-smokers: 0-2%; Smokers: 0- 9%; Toxic: >20% O2 Content Arterial 16.4 Interpret within clinical context ml/dL 04/12/2025 9:53 AM [facility] Hemoglobin by COOX 12.4 12.0 - 15.6 g/dL 04/12/2025 9:53 AM [facility] O2 Saturation Arterial 99 90 - 100 % 04/12/2025 9:53 AM [facility] Sodium Whole Blood 136 135 - 145 mmol/L 04/12/2025 9:53 AM [facility] Potassium Whole Blood 4.2 3.5 - 5.5 mmol/L 04/12/2025 9:53 AM [facility] Chloride WB 110(H) 78 - 107 mmol/L 04/12/2025 9:53 AM [facility] Calcium Ionized 1.24 mmol/L 9:53 AM [facility] Ionized Calcium pH Adjusted 1.20 1.19 - 1.34 mmol/L 04/12/2025 9:53 AM [facility] Anion Gap (AG) Arterial 3(L) 6 - 16 mmol/L 04/12/2025 9:53 AM [facility] Glucose WB 88 70 - 99 mg/dL 04/12/2025 9:53 AM [facility] Lactic Acid Whole Blood 0.8 <=2.0 mmol/L 04/12/2025 9:53 AM [facility] Blood, arterial ARTERIAL BLOOD SPECIMEN / Unknown 04/12/2025 9:53 AM CDT 04/12/2025 9:55 AM CDT us Serafin White MD LAB - POINT OF CARE ORDERABLE S Final Result Performing Organization Address City/[facility]/ZIP Co de Phone Number [facility] [address] [place] [address], [facility] [phone] * PREPARE (CROSSMATCH) RBC UNIT(S), 2 Units (04/12/2025 8:10 AM CDT) Unit Description AS1 LR PRBC [facility] B[facility]OD [facility] LAB Unit ABO A [facility] Unit Rh POS [facility] Product Number R02 [facility] B LOOD [facility] LAB Unit Donor # [id number] [facility] Unit Status released [facility] BLOO D BANK LAB Product Code [id number] [facility] BLO OD BANK LAB Blood Type Barcode 6200 [facility] Expiration Date [id number] S BLOOD BANK LAB Unit Description AS1 LR PRBC [facility]OD [facility] Unit ABO A [facility]OD [facility] Unit Rh POS [facility]OD [facility] Product Number R02 [facility] B LOOD BANK LAB Unit Donor # [id number] [facility]OD [facility] Unit Status released [facility] BLOO D BANK LAB Product Code [id number] [facility] BLO OD BANK LAB Blood Type Barcode 6200 [facility] LAB Expiration Date [id number] S BLOOD BANK LAB Blood Bank BLOOD SPECIMEN / Unknown 04/12/2025 8:10 AM CDT 04/12/2025 8:25 AM CDT us Dipti Ford 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 LAB - BLOOD BANK ORDERAB LES Final Result [facility]LOOD [facility] LAB [address] [place] [address], [facility] [phone] * TYPE + SCREEN PANEL (04/12/2025 8:10 AM CDT) Only the most recent of2 resultswithin the time period is included. Antibody Screen NEG 9:08 AM CDT [facility] BLOOD [facility] LAB ABO Rh A POS 04/12/2025 9:08 AM CDT [facility] B[facility]OD [facility] LAB Blood Bank BLOOD SPECIMEN / Unknown Venipuncture / Unknown 04/12/2025 8:10 AM CDT 04/12/2025 8:25 AM CDT Dipti Ford APRN-STUDENT DEVELOPMENT DEAN LAB - BLOOD BANK ORDERAB LES Final Result Performing Organization Address City/[facility]/ZIP Co de Phone Number [facility] BLOOD [facility] LAB [address] [place] [address], [facility] [phone] * EKG 12-Lead (04/03/2025 1:06 PM CDT) Pathologist [facility] Ventricular Rate 61 BPM [facility] MUSE Atrial Rate 61 BPM [facility] P-R Interval 132 ms [facility] QRS Duration ms 78 ms [facility] Q-T Interval ms 420 ms [facility] MUSE QTC Calculation (Bezet) 422 ms [facility] MUSE Calculated P [place] 66 degrees [facility] MUSE Calculated R [place] 7 degrees [facility] MUSE Calculated T [place] 50 degrees SL MUSE Interpretation EKG NORMAL SINUS RHYTHM NORMAL ECG WHEN COMPARED WITH ECG OF 06-FEB-2019 00:10, NO SIGNIFICANT CHANGE WAS FOUND Confirmed by LEONARD TRACY MD ([id number]) on 04/07/2025 11:04:37 PM [facility] MUSE 04/03/2025 1:06 PM CDT 04/07/2025 11:04 PM CDT Dipti Ford APRN-STUDENT DEVELOPMENT DEAN ECG ORDERABLES Edited R esult - Final [facility] MUSE from Last 3 Months Insurance [place] [employer] Advance Directives * Full Code (Latest Code Status on File) Date Activated Date Inactivated Comments 04/12/2025 11:14 AM 04/14/2025 1:16 PM * Full Code Date Activated Date Inactivated Comments 02/13/2021 6:50 PM 02/15/2021 2:26 PM * Full Code Date Activated Date Inactivated Comments 02/12/2019 6:38 PM 02/17/2019 5:17 PM * Full Code Date Activated Date Inactivated Comments 02/12/2019 11:16 AM 02/12/2019 6:30 PM * Full Code Date Activated Date Inactivated Comments 02/06/2019 5:08 AM 02/07/2019 6:53 PM Care Teams Application Chemist Relationship Specialty Start Date End Date None, Physician PCP - General 04/15/25 [place] [id number] [address] Physical Medicine and Rehabilitation 06/27/23
--- OUTSIDE RECORDS SUMMARY | 2025-06-29 08:16 | XMS_ITS | Clinical Summary ---
Author Organization [facility] Address [address] [place] [address] Phone Care Team Providers Care Clinical Aide Name Role Phone Christi Oliveira MD Primary Care Provider [phone] Allergies No known active allergies Medications cyclobenzaprine (FLEXERIL) 10 mg tabletIndication s:Myalgia of auxiliary muscles, head and neck Take 1 Tablet (10 mg) by mouth 2 times daily. Will make you sleepy. 12 Tablet 06/22/2025 Active Hospital, Clinic, or Other Facility Administered Medication Ordered Dose Route Frequency Start Date End Date Status ketorolac (TORADOL) injection 30 mgIndications:Myalgia of auxiliary muscles, head and neck,Neck pain on right side 30 mg IM ONE TIME ONLY 06/22/2025 06/22/2025 Ended Active Problems No known active problems Encounters Date Type Department Care Team Description 06/25/2025 External Device Data [facility] ABSTRACTION Provider, Abstract 06/25/2025 External Device Data [facility] Provider, Abstract 06/25/2025 External Device Data [facility]STRACTION Provider, Abstract 06/22/2025 2:35 PM CDT Office Visit [facility] [place] [address] [employer] [facility] [place] [address] Michelle Grier FNP Myalgia of auxiliary muscles, head and neck (Primary Dx); Neck pain on right side from Last 3 Months Social History Tobacco Use Types Packs/Day Years Used Date Smoking Tobacco: Every Day Cigarettes Smokeless Tobacco: Never Tobacco Cessation:Ready to Q uit: Not Asked; Counseling Given: Not Answered Comments Unknown Sex and Gender Information Value Date Recorded Sex Assigned at Not on file Legal Sex 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 Gender Identity Not on file Sexual Orientation Not on file Last Filed Vital Signs Vital Sign Reading Time Taken Comments Blood Pressure 102/69 06/22/2025 3:30 PM CDT Pulse 67 06/22/2025 2:44 PM CDT Temperature 36.9 C (98.4 F) 06/22/2025 2:44 PM CDT Respiratory Rate 16 06/22/2025 2:44 PM CDT Oxygen Saturation 96% 06/22/2025 2:44 PM CDT Inhaled Oxygen Concentration - - Weight 83 kg (183 lb) 06/22/2025 2:44 PM CDT Height 162.6 cm (5' 4) 06/22/2025 2:44 PM CDT Body Mass Index 31.41 06/22/2025 2:44 PM CDT Plan of Treatment Health Maintenance Due Date Last Done Comments Pre-Diabetes and Diabetes Screening 1969 DTAP/TDAP/TD VACCINES (1 - Tdap) 1988 HEPATITIS B VACCINES (1 of 3 - 19+ 3-dose series) 1988 HPV/Cotest (21-29) 1990 CERVICAL CANCER SCREENING 1999 HPV/Cotest (30-65) 1999 PAP SMEAR 1999 BREAST CANCER SCREENING 08/01/2014 08/01/2013, 08/01 COLORECTAL SCREENING 2014 Colorectal Cancer Screening 2014 FIT-DNA Q 3 years 2014 FIT/FOBT Q 1 year 2014 Flex Sig/CT Colonography Q 5 years 2014 ZOSTER VACCINE (1 of 2) 2019 INFLUENZA VACCINE (#1) 2025 08/26/2021, 2020 Insurance [facility] HE[facility]AN MEDICAID Care Teams Clinical Aide Relationship Specialty Start Date End Date Christi Oliveira MD [address] [place] [address] PCP - General Family Practice 10/06/21
--- OUTSIDE RECORDS SUMMARY | 2025-06-29 08:16 | XMS_ITS | Clinical Summary ---
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 No end-organ damage based on current labs. Started losartan 25mg PO once daily. BUN/Cr WNL and stable. Will refer to a PCP for follow-up/management. Hypokalemia 08/27/2020 Overview (08/27/2020): -08/27: K+ 3.2 on 09/12, repleted. Assessment & Plan (08/27/2020 10:08 AM CDT): - 08/27: K+ 3.2 on 08/26, repleted. Continue monitoring. PAD (peripheral artery disease) 08/22/2020 Assessment & Plan (08/26/2020 8:17 AM CDT): - History of vascular operation in 2019 at [facility] - Aorto-iliac bypass vs. Aorto-iliac endarterectomy - Follow-up with Dr. Tello at [facility], patient last seen 07/31/2020 and instructed to follow up in 1 year with ABIs [phone] - not currently on anticoagulation Chronic pain 08/22/2020 Assessment & Plan (08/27/2020 9:48 AM CDT): - May need pain management consultation - Home usage of narcotics and baclofen -SCREEN TENDER, 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 SEE post op pain 08/26: Now off lidocaine drip, continue SCREEN TENDER, transition to p.o. pain medication as able 08/27: Transitioned to PO pain medication. Complains mostly of chronic right knee pain secondary to uncontrolled RA per patient. Will refer her to a PCP for RA evaluation/management. Acute post-operative pain 08/22/2020 Assessment & Plan (08/27/2020 11:12 AM CDT): PAIN consulted Baclofen 5 TID PRN Oxycodone 5 q4H PRN Tylenol 1g q8H BAILEE dPCA Lidocaine gtt a. Opioids: IV: SCREEN TENDER: Hydromorphone 0.2mg q 10min b. Adjuvants: Topical: Adding 5% Lidocaine Patch IV: Continue lidocaine gtt. Please obtain lidocaine level q24H. Discontinue if >5. 08/25 Dilaudid SCREEN TENDER, while NPO then will transition to PO 08/27 transitioned to all oral pain medications. Regimen appropriate for pain control. Will discharge with oxycodone, baclofen, Tylenol. Incarcerated ventral hernia 08/20/2020 Overview (08/21/2020): Added automatically from request for surgery [id number] Assessment & Plan (08/27/2020 2:37 PM CDT): #SBO - OR overnight 08/20 for ex-lap + lysis of adhesions and primary ventral hernia repair. - NGT to LIWS; confirm intra-op - NPO, mIVF - Dilaudid SCREEN TENDER 08/23 NG to LIS, no bowel function. PRASHANTH drain, midline amy. ARBF 08/24: NG to LIWS. ARBF 08/25 low NGT output, no flatus, will provide a suppository 08/26: Bowel movement overnight, NG put out 850 dark output, passing gas, plan for 4 hours clamp trial today. 08/27: Flatus, BMs, NG output 10mL, no nausea. Advanced diet and will monitor her tolerance. Tolerated breakfast well this morning. Consider DC today if tolerates PO. - PM UPDATE: Patient now tolerating regular diet, having BM's, pain well controlled. Ambulating with wheeled walker and voiding without issue. Plan to discharge home with supervision from family. Follow up in [facility] in 2-3 weeks Cigarette nicotine dependence without complicati on 05/10/2019 Aortic occlusion 02/06/2019 Pain in both lower extremities 02/06/2019 Surgical History Surgery Date Site/Laterality Comments VASCULAR SURGERY 02/12/2019 - 03/13/2019 aorta surgery Medical History Medical History Date Comments Back pain Social History Tobacco Use Types Packs/Day Years Used Date Smoking Tobacco: Every Day Cigarettes 1 35 Smokeless Tobacco: Never Tobacco Cessation:Ready to Q uit: Not Asked; Counseling Given: Not Answered Alcohol Use Standard Drinks/Week Comments Never 0 (1 standard drink = 0.6 oz pur e alcohol) AUDIT-C Answer Date Recorded Q1: How often do you have a drink containing alc ohol? 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 Gender Identity Not on file Sexual Orientation Not on file Obstetrics History Last Filed Vital Signs Vital Sign Reading Time Taken Comments Blood Pressure 153/83 11/18/2020 9:00 AM BIN CLEANER Pulse 91 11/18/2020 9:00 AM BIN CLEANER Temperature 36.7 C (98 F) 11/18/2020 9:00 AM BIN CLEANER Respiratory Rate 18 08/27/2020 7:54 AM CDT Oxygen Saturation 96% 11/18/2020 9:00 AM BIN CLEANER Inhaled Oxygen Concentration - - Weight 90.7 kg (200 lb) 04/14/2023 1:44 PM CDT Height 162.6 cm (5' 4) 04/14/2023 1:44 PM CDT Body Mass Index 34.33 04/14/2023 1:44 PM CDT Plan of Treatment Health Maintenance Due Date Last Done Comments Cervical Cancer Screening 1969 Colon Cancer Screening-Colonoscopy 1969 Depression Screening 1969 Hepatitis C Screening 1969 DTaP/Tdap/Td Vaccine (1 - Tdap) 1980 Hepatitis B Screening 1987 Regular Well Visit/Exam 18-64 1987 Pneumococcal vaccine <65 (1 of 2 - PCV) 1988 Breast Cancer Screening-Mammogram 08/01/2014 013 Zoster Vaccine (1 of 2) 2019 Influenza Vaccine (#1) 2025 07/30/2021 Procedures Procedure Name Priority Date/Time Associated Diagnosis Comments SCREENING MAMMOGRAM W TREVOR Routine 08/01/2013 12:43 PM CDT from Last 3 Months or Most Recently Relevant to Health Maintenance Results * Screening Mammogram W Trevor (08/01/2013 12:43 PM CDT) Anatomical Region Laterality Modality Breast N/A Mammography 08/01/2013 12:4 3 PM CDT Narrative 08/03/2013 1:47 PM CDT MENDY SOUTH M.D. CASSIE ARANA M.D. FINAL REPORT The radiology attending physician has personally reviewed this study, and has reviewed and/or edited this written report and agrees with it. [facility]# Date Time Exam [id number] Aug 01, 2013 11:16:00 [facility] [id number] Diag Mammogram Bilateral Technologist(s): Anne Lam; ; [id number] Aug 01, 2013 11:35:00 [facility] [id number] Sono Breast (Unilateral) R [id number] Aug 01, 2013 12:43:00 [facility] [id number] Unilateral Tomosynthesis R Technologist(s): Josey Osborn; ; EXAMINATION: BILATERAL FULL FIELD DIGITAL DIAGNOSTIC MAMMOGRAM, DIGITAL BREAST TOMOSYNTHESIS, AND RIGHT BREAST SONOGRAM HISTORY: 42-year-old woman with palpable lump in the outer slightly lower right breast that she felt for 2 weeks. MAMMOGRAM TECHNIQUE: Additional views of both breasts were obtained utilizing full field digital mammography. Digital breast tomosynthesis was also performed and reviewed as a part of this examination. COMPARISON: None available. BREAST PARENCHYMAL COMPOSITION: Heterogeneously dense, which could obscure detection of small masses. MAMMOGRAM FINDINGS: Right breast: There are no suspicious masses, architectural distortions or suspicious calcifications. Coarse calcifications are noted in the upper outer right breast. Left breast: Scattered amorphous calcifications are noted in the upper outer left breast, which layer and become more distinct on the lateral view, consistent with milk of calcium, a benign finding. No suspicious masses, no suspicious calcifications or architectural distortions are noted in the left breast. SONOGRAM FINDINGS: Directed sonogram of the left lower outer breast was performed in the area of the palpable abnormality as well as in the surrounding regions. There are several areas of diffuse posterior acoustic shadowing, likely due to fibrosis, however no defined focal abnormal solid or cystic lesion is seen. Directed physical examination of the area of concern demonstrates no definite suspicious palpable abnormality at this time. IMPRESSION: 1) Dense fibrotic breast tissue, however no suspicious abnormality is confirmed in the area of reported palpable concern in the lower outer right breast. Clinical followup is recommended. If the palpable abnormality persists, surgical consultation is recommended. The above findings and recommendations were discussed with the patient at the end of the examination. 2) Benign bilateral breast calcifications. 3) Annual screening mammography is recommended. OVERALL FINAL ASSESSMENT: BI-RADS Category 2: Benign finding. ADDENDUM Addendum issued 08/02/[address] South and Luann The mammographic technique section should read: MAMMOGRAM TECHNIQUE: Additional views of both breasts were obtained utilizing full field digital mammography. Digital breast tomosynthesis was also performed and reviewed as a part of this examination.Computer Aided Detection was performed with [email or web address] version 9.3. OVERALL FINAL ASSESSMENT: BI-RADS Category 2: Benign finding. Requested By: Giovanni French [facility] Dictated By: CASSIE ARANA M.D. on Aug 01 2013 1:13P This document has been electronically signed by: MENDY SOUTH M.D. on Aug 01 2013 1:26P Addendum Dictated by: CASSIE ARANA M.D. on Aug 02 2013 2:35P This Addendum has been electronically signed by: MENDY SOUTH M.D. on Aug 03 2013 1:47P Procedure Note Provider, MD Joan - 03/13/2017 MENDY MONSEES, M.D. EVGUENIA KARIMOVA, M.D. FINAL REPORT The radiology attending physician has personally reviewed this study, and has reviewed and/or edited this written report and agrees with it. [facility]# Date Time Exam [id number] Aug 01, 2013 11:16:00 [facility] [id number] Diag Mammogram Bilateral Technologist(s): Anne Lam; ; [id number] Aug 01, 2013 11:35:00 [facility] [id number] Sono Breast (Unilateral) R [id number] Aug 01, 2013 12:43:00 [facility] [id number] Unilateral Tomosynthesis R Technologist(s): Josey Osborn; ; EXAMINATION: BILATERAL FULL FIELD DIGITAL DIAGNOSTIC MAMMOGRAM, DIGITAL BREAST TOMOSYNTHESIS, AND RIGHT BREAST SONOGRAM HISTORY: 42-year-old woman with palpable lump in the outer slightly lower right breast that she felt for 2 weeks. MAMMOGRAM TECHNIQUE: Additional views of both breasts were obtained utilizing full field digital mammography. Digital breast tomosynthesis was also performed and reviewed as a part of this examination. COMPARISON: None available. BREAST PARENCHYMAL COMPOSITION: Heterogeneously dense, which could obscure detection of small masses. MAMMOGRAM FINDINGS: Right breast: There are no suspicious masses, architectural distortions or suspicious calcifications. Coarse calcifications are noted in the upper outer right breast. Left breast: Scattered amorphous calcifications are noted in the upper outer left breast, which layer and become more distinct on the lateral view, consistent with milk of calcium, a benign finding. No suspicious masses, no suspicious calcifications or architectural distortions are noted in the left breast. SONOGRAM FINDINGS: Directed sonogram of the left lower outer breast was performed in the area of the palpable abnormality as well as in the surrounding regions. There are several areas of diffuse posterior acoustic shadowing, likely due to fibrosis, however no defined focal abnormal solid or cystic lesion is seen. Directed physical examination of the area of concern demonstrates no definite suspicious palpable abnormality at this time. IMPRESSION: 1) Dense fibrotic breast tissue, however no suspicious abnormality is confirmed in the area of reported palpable concern in the lower outer right breast. Clinical followup is recommended. If the palpable abnormality persists, surgical consultation is recommended. The above findings and recommendations were discussed with the patient at the end of the examination. 2) Benign bilateral breast calcifications. 3) Annual screening mammography is recommended. OVERALL FINAL ASSESSMENT: BI-RADS Category 2: Benign finding. ADDENDUM Addendum issued 08/02/[address] South and Luann The mammographic technique section should read: MAMMOGRAM TECHNIQUE: Additional views of both breasts were obtained utilizing full field digital mammography. Digital breast tomosynthesis was also performed and reviewed as a part of this examination.Computer Aided Detection was performed with [email or web address] version 9.3. OVERALL FINAL ASSESSMENT: BI-RADS Category 2: Benign finding. Requested By: Giovanni French ANP Dictated By: CASSIE ARANA M.D. on Aug 01 2013 1:13P This document has been electronically signed by: MENDY SOUTH M.D. on Aug 01 2013 1:26P Addendum Dictated by: CASSIE ARANA M.D. on Aug 02 2013 2:35P This Addendum has been electronically signed by: MENDY SOUTH M.D. on Aug 03 2013 1:47P Historical Provider MD [facility] MAMMO PROCEDURES Leta l Result from Last 3 Months or Most Recently Relevant to Health Maintenance Insurance [facility] [address] [facility] [place] [address] Advance Directives For more information, please contact: [phone] * Full Code (Latest Code Status on File) Date Activated Date Inactivated Comments 08/21/2020 1:20 PM 08/27/2020 8:50 PM * Full Code Date Activated Date Inactivated Comments 08/21/2020 6:53 AM 08/21/2020 1:20 PM Care Teams Ornament Maker Hand Relationship Specialty Start Date End Date Jennie Ramos MD [address] [facility] [address] [place] [address] PCP - General 11/13/20
--- NOTE | 2025-06-29 08:33 | ED.UPPEXIN ---
HPI - Extremity Injury (Upper) General Chief Complaint: Extremity Injury, Upper Stated Complaint: Right Arm Pain Source: patient and family (niece ) Mode of arrival: ambulatory Limitations: no limitations History of Present Illness HPI narrative: 54-year-old female presents to [facility] accompanied by her niece for complaints of pain to her right trapezius region for the past week. Patient reports that she woke up with pain. Patient reports that she did go to an urgent care in [place] and was prescribed Flexeril at that time which has not been helping. Patient does take daily Plavix and aspirin. Patient denies decreased range of motion to her right arm. Patient also has been taking [id number] Tylenol with minimal relief. Patient denies erythema, numbness or tingling. MD complaint: injury to: right and shoulder (Trapezius) Onset (ago): day(s) (7) Other injuries: none Relieving factors: rest Exacerbating factors: movement of extremity Treatments prior to arrival: cold therapy Related Data Allergies Allergy/AdvReac Type Severity Reaction Status Date / Time No Known Allergies Allergy Verified 06/29/25 08:13 Review of Systems Constitutional: Constitutional: Denies chills, Denies fatigue, Denies fever(s) and Denies weakness Cardiovascular: Cardiovascular: Denies chest pain Respiratory: Respiratory: Denies cough, Denies dyspnea and Denies wheezing Gastrointestinal: Gastrointestinal: Denies diarrhea, Denies nausea and Denies vomiting Musculoskeletal: Comments: Right trapezius pain Integumentary/Breasts: Skin/Breast: Denies pruritus, Denies erythema, Denies rash and Denies skin ulcer Neurologic: Denies syncope and Denies headache(s) PMFSH Comments At time of signature, I agree with nursing past medical, surgical, social and family history. There is no relevant family history pertinent to the presenting complaint. Exam Const: General: healthy appearing and no acute distress Nutritional Appearance: well nourished Orientation/consciousness: patient oriented x3 Limitations: no limitations HENMT: Head: normal to inspection Eyes: Conjunctivae: conjunctivae normal Neck: Neck: normal visual inspection Chest: Chest palpation & inspection: normal inspection of the chest Resp: Effort & Inspection: normal respiratory effort and not labored Auscultation: clear to auscultation bilaterally, no crackles, no rales, no rhonchi and no wheezes Cardio: Rate: regular rate Rhythm: regular rhythm Heart sounds: no murmurs Skin: General skin exam: normal color Rashes: no rashes Neuro: General: patient oriented x3 and moves all extremities Speech: normal speech Gait exam (Neuro): Normal gait present Extrem: General: normal to inspection Other: Pain to right trapezius region upon palpation. There is no obvious swelling noted. There is no erythema, bruising or signs infection noted. Full range of motion right arm noted. Pulses are within normal limits. Psych: Mental Status: mental status grossly normal Affect: normal affect Attitude: cooperative Course Course Level of Care: Express Care Visit Vital Signs Vital signs: Vital Signs Temperature 36.6 C 06/29/25 08:14 Pulse Rate 72 06/29/25 08:14 Respiratory Rate 20 06/29/25 08:14 Blood Pressure 100/70 06/29/25 08:14 Pulse Oximetry 97 06/29/25 08:14 Oxygen Delivery Room Air 06/29/25 08:14 Temperature 36.6 C 06/29/25 08:14 Pulse Rate 72 06/29/25 08:14 Respiratory Rate 20 06/29/25 08:14 Blood Pressure 100/70 06/29/25 08:14 Pulse Oximetry 97 06/29/25 08:14 Oxygen Delivery Room Air 06/29/25 08:14 MDM - Extremity Injury (Upper) MDM Narrative Medical decision making narrative: Encouraged patient to use [id number] lidocaine patches to area pain. Encouraged patient to use massage gun or massage therapy to area pain. Patient understands that she is to avoid NSAIDs and steroids due to daily blood thinner use. Patient agrees to stop Flexeril and start new muscle relaxer. Encouraged patient to establish care with local primary care provider soon as possible. Enourage patient proceed to emergency room if symptoms worsen Differential Diagnosis Differential diagnosis: Likely other (Strain, sprain) Critical Care Time Critical Care Time Critical Care Time: No Discharge Plan Discharge Clinical Impression: Muscle strain Patient Disposition: Home Condition: Stable Instructions: Muscle Strain (ED) Additional Instructions: Stop Flexeril and start methocarbamol Use massage gun and seek massage therapy to area of pain Continue [id number] Tylenol as needed Establish care with local primary care provider soon as possible Proceed to the emergency room if symptoms worsen Patient Language: Bulgarian Prescriptions: New methocarbamol 500 mg tablet 500 mg PO TID PRN (Reason: pain) Qty: 20 0RF Follow-up/Referrals: PHYSICIAN,PAINTER HAND [Primary Care Provider] - Time of Disposition: 08:39
== END 2025-06-29 08:48 | disposition home or self-care (01) ==
PROVIDERS: Emergency Provider Nurse Practitioner Family
DX: S46.811A Strain of other muscles, fascia and tendons at shoulder and upper arm level, right arm, initial encounter (principal); X58.XXXA Exposure to other specified factors, initial encounter; Z95.5 Presence of coronary angioplasty implant and graft
CPT/HCPCS: 99203; G0463